=== PATIENT | female | born 1935 | race Caucasian/White ===

== ENCOUNTER 2021-01-09 13:32 | Outpatient (CLI) | payer MEDICARE, SELFPAY | END 2021-01-09 13:33 | disposition home or self-care (01) | LOC: WOUND 13:33 | PROVIDERS: PCP Family Medicine; Visit Provider Thoracic Surgery (Cardiothoracic Vascular Surgery) | DX: I96 Gangrene, not elsewhere classified (principal); L89.622 Pressure ulcer of left heel, stage 2 | CPT/HCPCS: 11042; 87070; 87077; 87176; 87186; 87205; G0463 ==

== ENCOUNTER 2021-01-16 13:21 | Outpatient (CLI) | payer MEDICARE, SELFPAY | END 2021-01-16 13:22 | disposition home or self-care (01) | LOC: WOUND 13:24 | PROVIDERS: PCP Family Medicine; Visit Provider Thoracic Surgery (Cardiothoracic Vascular Surgery) | DX: E11.622 Type 2 diabetes mellitus with other skin ulcer (principal); L97.822 Non-pressure chronic ulcer of other part of left lower leg with fat layer exposed | CPT/HCPCS: 11042 ==

== ENCOUNTER 2021-01-30 14:46 | Outpatient (CLI) | payer MEDICARE, SELFPAY | END 2021-01-30 14:47 | disposition home or self-care (01) | LOC: WOUND 14:47 | PROVIDERS: PCP Family Medicine; Visit Provider Thoracic Surgery (Cardiothoracic Vascular Surgery) | DX: I96 Gangrene, not elsewhere classified (principal); L89.622 Pressure ulcer of left heel, stage 2 | CPT/HCPCS: 11042 ==

== ENCOUNTER 2021-02-13 13:35 | Outpatient (CLI) | payer MEDICARE, SELFPAY | END 2021-02-13 13:36 | disposition home or self-care (01) | LOC: WOUND 13:44 | PROVIDERS: PCP Family Medicine; Visit Provider Nurse Practitioner Family | DX: I96 Gangrene, not elsewhere classified (principal); L89.622 Pressure ulcer of left heel, stage 2 | CPT/HCPCS: 11042 ==

== ENCOUNTER 2021-02-20 14:26 | Outpatient (CLI) | payer MEDICARE, SELFPAY | END 2021-02-20 14:27 | disposition home or self-care (01) | LOC: WOUND 14:27 | PROVIDERS: PCP Family Medicine; Visit Provider Thoracic Surgery (Cardiothoracic Vascular Surgery) | DX: L89.622 Pressure ulcer of left heel, stage 2 (principal) | CPT/HCPCS: 11042 ==

== ENCOUNTER 2021-03-20 10:38 | Outpatient (CLI) | payer MEDICARE, SELFPAY | END 2021-03-20 10:39 | disposition home or self-care (01) | LOC: WOUND 10:39 | PROVIDERS: PCP Family Medicine; Visit Provider Nurse Practitioner Family | DX: L89.622 Pressure ulcer of left heel, stage 2 (principal) | CPT/HCPCS: 11042 ==